=== PATIENT | male | born 2000 | race African-American/Black ===

== ENCOUNTER 2018-06-27 09:52 | Emergency (ER) | payer MEDICAID ==
[~2018-06-27] VITALS: Ht 172.7 cm; Wt 64.0 kg
[2018-06-27 10:19] VITALS: BP 141/83
[2018-06-27] MEDS ORDERED: CEFTRIAXONE SODIUM 250 MG/VIAL IM ONE (10:45)
[2018-06-27] MEDS ORDERED: AZITHROMYCIN 500 MG TABLET PO ONE (10:45)
[2018-06-27] MEDS ORDERED: LIDOCAINE HCL 1% 20ML VIAL (Pyxis) INJ INFIL ONE (10:45)
[2018-06-27 10:54] LABS: CLARITY URINE CLOUDY (CLEAR); COLOR URINE YELLOW (YELLOW); KETONES URINE NEGATIVE (NEGATIVE); LEUKOCYTE ESTERASE URINE 3+ (NEGATIVE); NITRITE URINE NEGATIVE (NEGATIVE); OCCULT BLOOD URINE NEGATIVE (NEGATIVE); PROTEIN URINE NEGATIVE (NEGATIVE); SPECIFIC GRAVITY URINE 1.019 (1.005-1.030)
[2018-06-29 06:11] LABS: CHLAMYDIA TRACHOMATIS NAA Negative (Negative); NEISSERIA GONORRHOEAE NAA Positive (Negative)
== END 2018-06-27 10:59 | disposition home or self-care (01) ==
LOC: ER 09:52
DX: N34.2 Other urethritis (principal)
CPT/HCPCS: 81003; 87086; 87491; 87591; 96372; 99283; J0696; J3490

== ENCOUNTER 2019-01-05 23:29 | Emergency (ER) | payer MEDICAID ==
[~2019-01-05] VITALS: Ht 172.7 cm; Wt 66.0 kg
[2019-01-06 00:14] VITALS: BP 125/46
== END 2019-01-06 01:59 | disposition left against medical advice (07) ==
LOC: ER 23:29
DX: Z53.21 Procedure and treatment not carried out due to patient leaving prior to being seen by health care provider (principal)

== ENCOUNTER 2020-06-03 13:41 | Emergency (ER) | payer MEDICAID ==
[~2020-06-03] VITALS: Ht 172.7 cm; Wt 66.0 kg
[2020-06-03 14:10] LABS: CLARITY URINE CLEAR (CLEAR); COLOR URINE YELLOW (YELLOW); KETONES URINE NEGATIVE (NEGATIVE); LEUKOCYTE ESTERASE URINE 2+ (NEGATIVE); NITRITE URINE NEGATIVE (NEGATIVE); OCCULT BLOOD URINE NEGATIVE (NEGATIVE); PROTEIN URINE NEGATIVE (NEGATIVE); SPECIFIC GRAVITY URINE 1.011 (1.005-1.030)
[2020-06-03] MEDS ORDERED: CEFTRIAXONE SODIUM 500 MG/VIAL IM ONE (14:30)
[2020-06-03] MEDS ORDERED: LIDOCAINE HCL 1% 20ML VIAL (Pyxis) INJ INFIL ONE (14:30)
[2020-06-03] MEDS ORDERED: [UNRECOGNIZED DRUG - CODE] MT (14:33)
[2020-06-03 14:48] VITALS: BP 121/69
== END 2020-06-03 14:49 | disposition home or self-care (01) ==
LOC: ER 13:41
DX: N34.2 Other urethritis (principal)
CPT/HCPCS: 81003; 87077; 87086; 87186; 96372; 99283; J0696

== ENCOUNTER 2024-12-03 10:10 | Emergency (ER) | payer BC, MEDICAID ==
[~2024-12-03] VITALS: Ht 175.3 cm; Wt 84.0 kg
[~2024-12-03 10:10] MED LIST: [UNRECOGNIZED DRUG - CODE] MT
[2024-12-03 10:17] VITALS: O2SAT 99
[2024-12-03] MEDS: CEFTRIAXONE SODIUM 500MG VIAL IM ONE (11:26)
[2024-12-03 12:44] LABS: CLARITY URINE CLOUDY (CLEAR); COLOR URINE YELLOW (YELLOW); GLUCOSE URINE NEGATIVE (NEGATIVE); KETONES URINE NEGATIVE (NEGATIVE); LEUKOCYTE ESTERASE URINE 3+ (NEGATIVE); NITRITE URINE NEGATIVE (NEGATIVE); OCCULT BLOOD URINE TRACE (NEGATIVE); PH URINE 7.0 (4.5-8.0); PROTEIN URINE 1+ (NEGATIVE); SPECIFIC GRAVITY URINE 1.026 (1.005-1.030); UROBILINOGEN URINE 1.0 E.U./dL (0.2-1.0)
[2024-12-03 12:54] LABS: BACTERIA URINE 1+; RBC URINE 0-2 /hpf (0-2); SQUAMOUS EPITHELIAL CELL URINE RARE /lpf (RARE/1+); WBC URINE TNTC /hpf (0-2); YEAST URINE NONE SEEN
[2024-12-03] MEDS ORDERED: DOXY100T2 MT (12:59)
[2024-12-03] MEDS ORDERED: CEFP200T13 MT (12:59)
[2024-12-03] MEDS ORDERED: PHEN-910 MT (13:01)
[2024-12-03 13:16] VITALS: BP 129/93; PULSE 85; RESP 16; TEMP 36.9; O2SAT 100
[2024-12-05 17:07] LABS: CHLAMYDIA TRACHOMATIS NAA Negative (Negative); NEISSERIA GONORRHOEAE NAA Positive (Negative)
== END 2024-12-03 13:18 | disposition home or self-care (01) ==
LOC: ER 10:10
DX: N39.0 Urinary tract infection, site not specified (principal)
CPT/HCPCS: 99283; 87491; 87591; 81003; 87086; 96372; J0696